=== PATIENT | male | born 1945 | race Caucasian/White ===

== ENCOUNTER → 2017-05-08 | Outpatient (CLI) | payer MEDICARE ==
--- NOTE | 2017-05-08 13:28 | KCIC ---
Indication: Polyps, seasonal allergies. Technique: Axial images and coronal and sagittal reformatted images are provided. Mobridge protocol was utilized. No comparison is available. One or more of the following individualized dose reduction techniques were utilized for this examination: 1. Automated exposure control 2. Adjustment of the mA and/or kV according to patient size 3. Use of iterative reconstruction technique Findings: There is mild bifrontal mucosal thickening with occlusion of both frontal recesses. Moderate to severe opacification of the ethmoid air cells is noted. There is minimal mucosal thickening in the left sphenoid sinus, the right sphenoid sinus is small but clear. There is occlusion of the sphenoethmoidal recess. Maxillary sinus mucosal thickening is mild on the right and moderate on the left with debris present on the left. There is no wall sclerosis. Both maxillary ostia are occluded. There is a Bernie cell present bilaterally. There is nasal septal deviation to the right with contact with the inferior turbinate. Mastoid air cells are clear. Orbital contents are unremarkable. IMPRESSION: Pansinus mucosal thickening. Electronically signed by: Alexi Fong MD (05/08/2017 1:24 PM) [facility]-KCIC1
== END | disposition home or self-care (01) ==
LOC: KCIC CT 12:44
PROVIDERS: ATTEND Otolaryngology
DX: J34.2 Deviated nasal septum (principal)
CPT/HCPCS: 70486

== ENCOUNTER → 2017-07-14 | Outpatient (CLI) | payer MEDICARE ==
--- NOTE | 2017-07-15 08:55 | KCIC ---
MRI right hip without contrast dated 07/14/2017 5:00 PM Indication: Right hip pain pain for months old left leg injury. Comparison: No comparison is available. Technique: Routine multiplanar multisequence imaging performed. . Findings: Homogeneous signal throughout the visualized bone marrow. No bone marrow edema or marrow replacement process. There are mild hypertrophic change of the right hip joint. Mild thinning and surface irregularity of the articular cartilage. No full-thickness cartilage defect. There is outward convex deformity of the lateral femoral head/neck junction with no discrete herniation pit or subchondral cyst. Signal irregularity and deformity of the anterior superior labrum with linear signal along the labral cartilaginous interface. No significant joint effusion or loose body. Gluteus minimus and gluteus medius tendons are intact. There is minimal increased signal within the gluteus medius at its trochanteric attachment. Proximal hamstring tendon complex is intact. Iliopsoas is intact. Limited imaged portions of the pelvis are unremarkable. Mild degenerative change of the left hip joint. Mild edema within the paraspinous soft tissues the level of the lumbosacral junction, nonspecific. No free fluid or lymphadenopathy. IMPRESSION: 1. 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 2. Anterior superior labral tear/detachment on the right. 3. Outward convex deformity of the lateral femoral head/neck junction suggesting underlying femoral acetabular impingement. Electronically signed by: James Britton MD (07/15/2017 8:52 AM) [facility]-KCIC2
== END | disposition home or self-care (01) ==
LOC: KCIC MRI 16:28
PROVIDERS: ATTEND Family Medicine
DX: S43.431A Superior glenoid labrum lesion of right shoulder, initial encounter (principal); M94.251 Chondromalacia, right hip; M16.11 Unilateral primary osteoarthritis, right hip; X58.XXXA Exposure to other specified factors, initial encounter; Y93.89 Activity, other specified; Y92.89 Other specified places as the place of occurrence of the external cause; Y99.8 Other external cause status
CPT/HCPCS: 73721

== ENCOUNTER → 2018-01-14 | Outpatient (CLI) | payer OTHER | END | disposition home or self-care (01) | LOC: KCIC MRI 13:53 | DX: S83.241A Other tear of medial meniscus, current injury, right knee, initial encounter (principal); M71.21 Synovial cyst of popliteal space [Baker], right knee; M75.50 Bursitis of unspecified shoulder; M19.011 Primary osteoarthritis, right shoulder; M94.261 Chondromalacia, right knee; X58.XXXA Exposure to other specified factors, initial encounter; Y93.89 Activity, other specified; Y92.89 Other specified places as the place of occurrence of the external cause; Y99.8 Other external cause status | CPT/HCPCS: 73221; 73721 ==

== ENCOUNTER → 2018-01-19 | Outpatient (CLI) | payer OTHER | END | disposition home or self-care (01) | LOC: KCIC MRI 10:53 | DX: S93.691D Other sprain of right foot, subsequent encounter (principal); M19.071 Primary osteoarthritis, right ankle and foot; R60.0 Localized edema; X58.XXXD Exposure to other specified factors, subsequent encounter | CPT/HCPCS: 73718; 73721 ==

== ENCOUNTER 2018-12-16 09:32 | Outpatient (CLI) | payer MEDICARE, OTHER ==
[2018-12-16] VITALS (7 sets, daily range): BP systolic 97–137; BP diastolic 63–88
[~2018-12-16] VITALS: Ht 167.6 cm; Wt 67.6 kg
[~2018-12-16 09:32] MED LIST: ACET325T9 PO; CETI10TA22 PO; LACT1CAP8 PO; OMEP20CA10 PO; SULF1TAB24 PO
[2018-12-16 09:59] LABS: BASO # 0.1 x10^3/uL (0.0-0.2); BASO % 1 % (0-3); EOS # 0.2 x10^3/uL (0.0-0.7); EOS % 4 % (0-3); HEMATOCRIT 38.9 % (39.0-53.0); HEMOGLOBIN 13.4 g/dL (13.0-17.5); LYMPH # 1.4 x10^3/uL (1.0-4.8); LYMPH % 29 % (24-48); MEAN CORPUSCULAR HEMOGLOBIN 32 pg (25-35); MEAN CORPUSCULAR HGB CONC 34 g/dL (31-37); MEAN CORPUSCULAR VOLUME 94 fL (79-100); MONO # 0.5 x10^3/uL (0.0-1.1); MONO % 9 % (0-9); NEUT # 2.8 x10^3uL (1.8-7.7); NEUT % 56 % (31-73); PLATELET COUNT 268 x10^3/uL (140-400); RED BLOOD COUNT 4.14 x10^6/uL (4.30-5.70); RED CELL DISTRIBUTION WIDTH 12.8 % (11.5-14.5); WHITE BLOOD COUNT 4.9 x10^3/uL (4.0-11.0)
[2018-12-16 10:06] LABS: PROTHROMBIN TIME PATIENT 13.2 SEC (11.7-14.0)
[2018-12-16] MEDS ORDERED: LIDOCAINE WITH 8.4% SOD BICARB 3 ML DISP.SYRIN. ONE ×2 (10:20→10:28)
[2018-12-16] MEDS ORDERED: IOHEXOL 240 MG/ML 50ML VIAL. ONE (10:28)
[2018-12-16] MEDS ORDERED: MIDAZOLAM HCL/PF 5 MG/5 ML VIAL. ONE (10:30)
[2018-12-16] MEDS ORDERED: fentaNYL PF VIAL 100 MCG/2 ML VIAL ONE (10:30)
[2018-12-16] MEDS ORDERED: MIDAZOLAM HCL/PF 5 MG/5 ML VIAL. IV ONE (11:00)
[2018-12-16] MEDS ORDERED: LIDOCAINE WITH 8.4% SOD BICARB 3 ML DISP.SYRIN. IJ ONE (11:00)
[2018-12-16] MEDS ORDERED: fentaNYL PF VIAL 100 MCG/2 ML VIAL IV ONE (11:00)
[2018-12-16] MEDS ORDERED: IOHEXOL 240 MG/ML 50ML VIAL. IJ ONE (11:00)
--- NOTE | 2018-12-16 11:33 | PDOC1 ---
History and Physical Date of Procedure Date of Admission History of Present Illness Reason for Visit Adult male with debilitating acute to sub-acute compression fractures of T10 and L1, abnormal MRI concerning for pathological marrow, hx of bladder cancer Past Medical History Past Medical History see nursing pre-op assessment Current Medications Current Medications Current Medications Lidocaine/Sodium Bicarbonate (Buffered Lidocaine 1%) 3 ml STK-MED ONCE .ROUTE ; Start 12/16/18 at 10:20; Stop 12/16/18 at 10:21; Status DC Lidocaine/Sodium Bicarbonate (Buffered Lidocaine 1%) 3 ml STK-MED ONCE .ROUTE ; Start 12/16/18 at 10:28; Stop 12/16/18 at 10:29; Status DC Iohexol (Omnipaque 240 Mg/ml) 50 ml STK-MED ONCE .ROUTE ; Start 12/16/18 at 10: 28; Stop 12/16/18 at 10:29; Status DC Cefazolin Sodium 50 ml @ As Directed STK-MED ONCE IV ; Start 12/16/18 at 10:30; Stop 12/16/18 at 10:31; Status DC Midazolam HCl (Versed) 5 mg STK-MED ONCE .ROUTE ; Start 12/16/18 at 10:30; Stop 12/16/18 at 10:31; Status DC Fentanyl Citrate (Fentanyl 2ml Vial) 100 mcg STK-MED ONCE .ROUTE ; Start at 10:30; Stop 12/16/18 at 10:31; Status DC Lidocaine/Sodium Bicarbonate (Buffered Lidocaine 1%) 3 ml 1X ONCE IJ ; Start at 11:00; Stop 12/16/18 at 11:01; Status DC Midazolam HCl (Versed) 5 mg 1X ONCE IV ; Start 12/16/18 at 11:00; Stop at 11:01; Status DC Fentanyl Citrate (Fentanyl 2ml Vial) 100 mcg 1X ONCE IV ; Start 12/16/18 at 11: 00; Stop 12/16/18 at 11:01; Status DC Cefazolin Sodium 50 ml @ 100 mls/hr 1X ONCE IV ; Start 12/16/18 at 11:00; Stop 12/16/18 at 11:29; Status DC Iohexol (Omnipaque 240 Mg/ml) 50 ml 1X ONCE IJ ; Start 12/16/18 at 11:00; Stop 12/16/18 at 11:01; Status DC Active Scripts Active Reported Bactrim Ds Tablet (Sulfamethoxazole/Trimethoprim) 1 Each Tablet 1 Tab PO DAILY Zyrtec (Cetirizine Hcl) 10 Mg Tablet 1 Tab PO DAILY Omeprazole 20 Mg Capsule. 1 Cap PO BID Allergies Allergies: Coded Allergies: No Known Drug Allergies (Unverified , 03/28/15) Physical Exam Vital Signs Vital Signs Date Time Temp Pulse Resp B/P (MAP) Pulse Ox O2 Delivery O2 Flow Rate FiO2 12/16/18 10:14 Room Air 12/16/18 10:00 98.0 64 20 137/88 (104) 97 98.0 Other see nursing pre-op assessment Assessment Assessment T10 and l1 compression fractures Plan Plan T10 and L1 biopsy and kyphoplasty DYANA MILLER MD Dec 16, 2018 11:33
--- NOTE | 2018-12-16 11:35 | PDOC ---
BRIEF OPERATIVE NOTE Pre-Op Diagnosis T10 and L1 acute to subacute compression fractures and osteoporosis Post-Op Diagnosis same Procedure Performed T10 and L1 kyphoplasty and Biopsy Surgeon Annette Anesthesia Type: Conscious Sedation Specimens Obtained 1 x 11g core from both T10 and L1 Findings T10 and L1 kyphoplasty Complications No immediate DYANA MILLER MD Dec 16, 2018 11:35
--- NOTE | 2018-12-16 11:35 | PDOC ---
MODERATE SEDATION ASSESSMENT RISKS/ALTERNATIVES Risks/Alternatives Risks and alternatives of this type of sedation and procedure discussed with: RISK/ALTERNATIVES: Patient H & P ON CHART H & P H & P on chart and reviewed for co-morbid conditions and appropriate labs. H&P ON CHART: Yes STATUS PREG STATUS ASSESSED: Yes MEDS/ALLERGIES REVIEWED Meds/Allergies Reviewed Medications and Allergies including time and route of recently administered narcotics and sedatives. MEDS/ALLERGIES REVIEWED: Yes ASA RATING ASA RATING: II AIRWAY ASSESSMENT Airway Assessment Airway patency, oral function limitations, presence of caps, crowns, dentures, partials, and ability to extend neck assessed. AIRWAY ASSESSMENT: Yes MALLAMPATI SCORE MALLAMPATI SCORE: II PRE-SEDATION ASSESSMENT PRE-SEDATION ASSESSMENT: Yes DYANA MILLER MD Dec 16, 2018 11:35
--- NOTE | 2018-12-16 13:23 | NUR ---
Discharge Note: SOPHIA DENNIS Discharge instructions and discharge home medications, follow up, s/s requiring further attention, and wound care reviewed with patient and and a copy given. All questions have been answered and understanding verbalized. The following instructions and handouts were given: post vertebroplasty, post moderation sedation adult Discontinued lines and drains: right wrist peripheral IV. Patient discharged to home with via private vehicle
--- NOTE | 2018-12-16 14:59 | RAD ---
Procedure: Fluoroscopic guided biopsy and kyphoplasty of T10 and L1 Clinical Indication: 73-year-old male with debilitating osteoporotic compression fractures of T10 and L1, with suspicious findings on MRI concerning for marrow infiltration. History of bladder cancer. Sedation: Conscious sedation was administered with a total intraprocedural [id number] time of 50 minutes. The patient was monitored by a qualified independent observer throughout the time of sedation. Please refer to the medical record for exact doses of medications utilized to achieve moderate sedation. Antibiotics: Elements antibiotic Exposure: Kerma-Area Product: 3068 uGycm2 Sterility: All elements of maximal sterile barrier technique including the use of a cap, mask, sterile gown, sterile gloves, large sterile sheet, appropriate hand hygiene, and 2% chlorhexidine for cutaneous antisepsis (or acceptable alternative antiseptic per current guidelines) were followed for this procedure. If ultrasound guidance was utilized, sterile ultrasound techniques were followed including use of a sterile probe cover. Consent: The procedure was explained in its entirety to the patient or the patients designated vaccine customer representative by a member of the treatment team, including a discussion of the risks, benefits and commonly accepted alternatives to the procedure, as well as the expected consequences of no therapy whatsoever. Discussion of the risks included, but was not limited to, those that are most frequent and those that are rare but possibly severe or life-threatening, as well as the possibility of unforeseen complications. Technique and Findings: Following informed consent, the patient was prepped and draped in usual sterile fashion. 1% lidocaine was used to achieve local anesthesia over the area of interest. A small dermatotomy was made. Under fluoroscopic guidance, a 10-gauge kyphoplasty needle was advanced in a left transpedicular fashion to the posterior aspect of L1. An 11-gauge core bone biopsy specimen was then obtained and preserved in formalin. A second area was then anesthetized at the T10 level and a second small dermatotomy was made. Once again under fluoroscopic guidance, a 10-gauge needle was advanced in a left transpedicular fashion towards the posterior aspect of the T10 vertebral body. This needle was felt to be suboptimal in orientation, and consequently was removed. The right paravertebral soft tissues were then anesthetized at the T10 level and a third small dermatotomy was made. Under fluoroscopic guidance, the 10-gauge needle was advanced in a right transpedicular fashion to the posterior aspect of the T10 vertebral body. An 11-gauge bone biopsy needle was then advanced coaxially and used to obtain a bone biopsy specimen of T10. This was preserved in formalin. A balloon was then advanced sequentially at T10 and subsequently at L1, and used to create a cavity within both vertebral bodies. This balloon ruptured within the vertebral body of L1, however the entirety of the balloon was successfully retrieved. Polymethylmethacrylate was then instilled in both vertebral bodies with good result. Both needles were then removed and hemostasis was achieved with manual compression. Complications: No immediate Impression: 1. Fluoroscopic guided biopsy and kyphoplasty of T10 and L1 as described
--- NOTE | 2018-12-21 17:08 | PATHOLOGY ---
[facility] Accession Number: [id number] . 01 Material submitted: . PART A: T10 BIOPSY PART B: L1 BIOPSY . 01 Clinical history: . T10/L1 compression fracture . 02 Diagnosis: A. Bone, T10 vertebral body core biopsy: - Reactive bone formation with marrow edema, focal marrow fibrosis and chronic inflammation, and focal hemosiderin laden macrophages. . B. Bone, L1 vertebral body core biopsy: - Focal reactive bone formation with marrow edema and focal hemosiderin laden macrophages and focal presence of hematopoietic marrow. (JPM:luis; 12/21/2018) QMS/12/21/2018 . 02 Comment: Sections of the T10 vertebral body bone biopsy show reactive bone formation which is lined by osteoblasts and focal osteoclasts. The marrow stroma shows edema, focal fibrosis and chronic inflammation, and focal hemosiderin laden macrophages. The findings are consistent with fracture site. There is no evidence of metastatic carcinoma. . Sections of the L1 vertebral body biopsy show focal reactive bone formation which is lined by osteoblasts. There is marrow edema and focal hemosiderin laden macrophages. There is focal hematopoietic marrow present in the core biopsy. There is no evidence of metastatic carcinoma. The case is also examined by Dr. Reina, who concurs with the diagnoses. (JPM:luis; 12/21/2018) . 02 Electronically signed: . Clive Michelle MD, Pathologist NPI- [id number] . 01 Gross description: . A. The specimen is received in formalin, labeled "Aditya Hollins, T10" and consists of a garcia bone core measuring 1.6 cm in length and 0.2 cm in diameter which is entirely submitted in A1 following decalcification. . B. The specimen is received in formalin, labeled "Aditya Hollins, L1" and consists of a garcia bone core measuring 1.3 cm in length and 0.2 cm in diameter which is entirely submitted in B1 following decalcification. (SDY; 12/16/2018) SYU/SYU . 02 Pathologist provided ICD-10: M48.54XA, M89.8X8 . 02 CPT . 816311, 815264, 289210, 194820 Specimen Comment: A courtesy copy of this report has been sent to Specimen Comment: [phone], . Specimen Comment: Report sent to / DR BERRY Performed at: 01 [facility] [address], [place] [id number] MD Terrance Varela MD Phone: [phone] Performed at: 02 [facility] [address], [place] [id number] MD Clive Michelle MD Phone: [phone]
== END 2018-12-16 13:42 | disposition home or self-care (01) ==
LOC: INTRAD 09:32
PROVIDERS: ATTEND Radiology Diagnostic Radiology
DX: M80.88XA Other osteoporosis with current pathological fracture, vertebra(e), initial encounter for fracture (principal); M54.5 Low back pain; Z85.51 Personal history of malignant neoplasm of bladder; Z79.899 Other long term (current) drug therapy; Z79.01 Long term (current) use of anticoagulants
CPT/HCPCS: 22513; 22515; 36415; 85025; 85610; 99152; 99153; C1713; C1725; C1892; J0690; J2250; J3010; Q9966; 22514; 88307; 88311

== ENCOUNTER → 2019-01-01 | Outpatient (CLI) | payer MEDICARE, OTHER ==
[2018-12-16 13:09] VITALS: BP 115/63
--- NOTE | 2019-01-01 10:52 | KCIC ---
Examination: CT of the abdomen pelvis without contrast HISTORY: History of enlarged left ureter, left flank pain COMPARISON: MRI lumbar spine from 12/07/2018 TECHNIQUE: Axial CT images of the abdomen pelvis were performed without contrast. Coronal and sagittal reformats performed Exposure: One or more of the following individualized dose reduction techniques were utilized for this examination: 1. Automated exposure control 2. Adjustment of the mA and/or kV according to patient size 3. Use of iterative reconstruction technique FINDINGS: Minimal infiltrates identified in the right middle lobe, left upper lobe of the lung. No evidence of free air identified in the abdomen. The evaluation of the solid organs is limited due to lack of IV contrast. Evaluation of bowel is limited due to lack of oral contrast. The visualized liver, spleen, adrenals grossly appears unremarkable. The gallbladder is mildly distended. Few gallstones identified in the proximal gallbladder. The stomach is mildly distended. The visualized pancreas grossly appears unremarkable. The small bowel is nondilated. Feces and gas noted in the colon. Severe left-sided hydronephrosis and moderate left hydroureter identified. The distal portion of the ureter is evaluation is limited. Surgical changes of urostomy identified. Streak artifact from metallic clips in the pelvis limited evaluation of the distal ureters. There is mild fat stranding identified about the left kidney. Mild prominent right extrarenal pelvis. Moderate aortic atherosclerosis. Kyphoplasty changes identified at L1 vertebral body. There is mild to moderate compression change of L5 vertebral body similar to prior exam. IMPRESSION: 1. Severe left-sided hydronephrosis and moderate left hydroureter with minimal fat stranding identified about the left kidney could be secondary to distal left ureteral obstruction or stricture. The evaluation of the distal ureter is limited due to streak artifact from metal clips in the pelvis. Changes of urostomy identified. 2. Cholelithiasis 3. Minimal infiltrates identified in the right middle lobe, left upper lobe of the lung. Electronically signed by: Jeronimo Ladd MD (01/01/2019 10:49 AM) [facility]2
== END | disposition home or self-care (01) ==
LOC: KCIC CT 09:42
PROVIDERS: ATTEND Nurse Practitioner Family
DX: N13.39 Other hydronephrosis (principal); K80.20 Calculus of gallbladder without cholecystitis without obstruction; R91.8 Other nonspecific abnormal finding of lung field; I70.0 Atherosclerosis of aorta; M51.06 Intervertebral disc disorders with myelopathy, lumbar region; K31.89 Other diseases of stomach and duodenum; K82.8 Other specified diseases of gallbladder; Z93.6 Other artificial openings of urinary tract status
CPT/HCPCS: 74176

== ENCOUNTER → 2019-06-16 | Outpatient (CLI) | payer MEDICARE ==
[2018-12-16 13:09] VITALS: BP 115/63
--- NOTE | 2019-06-17 11:39 | KCIC ---
KUB History: Abdominal pain, stents Comparison: CT exam January 01, 2019 Findings: 2 supine AP views of abdomen are submitted. There is now pigtail on the left in the superior pelvic region, also pigtail in the right superior pelvic region with convergence of catheter to the right of the midline more inferiorly in the right pelvic region. There are multiple clips in the pelvis. There is cholelithiasis. There is retained stool greater of the right colon. Impression: 1. There is retained catheter in the pelvis as stated, location better characterized by CT if clinically needed. 2. There is again cholelithiasis. Electronically signed by: Prashant Siegel MD (06/17/2019 11:36 AM) [facility]-KCIC1
== END | disposition home or self-care (01) ==
LOC: KCIC 14:27
PROVIDERS: ATTEND Urology
DX: K80.20 Calculus of gallbladder without cholecystitis without obstruction (principal); K56.41 Fecal impaction
CPT/HCPCS: 74018

== ENCOUNTER → 2020-10-04 | Outpatient (CLI) | payer MEDICARE ==
[2018-12-16 13:09] VITALS: BP 115/63
[~2020-10-04] MED LIST changes: -CETI10TA22 PO; +CETI10TA74 PO; -OMEP20CA10 PO; +OMEP20CA16 PO
[2020-10-04] MEDS: SIMETHICONE/SOD BICARB/CITRIC ACID PACKET. PO ONE (13:00)
[2020-10-04] MEDS: BARIUM SULFATE 340 GM SUSPENSION. PO ONE (13:32)
[2020-10-04] MEDS: BARIUM SULFATE 60% 355 ML SUSP PO ONE (13:34)
--- NOTE | 2020-10-04 16:12 | RAD ---
EXAM: SINGLE CONTRAST UPPER GI SERIES. HISTORY: GERD. COMPARISON: Abdomen and pelvis CT of 01/01/2019.. 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 Barium contrast material was administered orally and follo wed in its course through the esophagus, gastroesophageal junction, stomach, pylorus and proximal sma ll bowel with fluoroscopy. Fluoroscopy time 2.2 minutes. 11 images were obtained. The esophagus appears normal in morphology and mucosal pattern. Motility appeared normal. The gastroesophageal junction within its expected position. It opened promptly. A small amount of ref lux was observed. Gastric morphology and mucosal pattern appears normal. The pylorus opened promptly. The duodenal bulb and proximal small bowel are unremarkable. IMPRESSION: 1. Small amount of gastroesophageal reflux with no significant hiatal hernia noted. Electronically signed by: Roshni Rowe MD (10/04/2020 4:09 PM) [id number]
== END ==
LOC: RAD 12:18
PROVIDERS: ATTEND Surgery
DX: K21.9 Gastro-esophageal reflux disease without esophagitis (principal)
CPT/HCPCS: 74240

== ENCOUNTER → 2020-10-13 | Outpatient (CLI) | payer MEDICARE ==
[2018-12-16 13:09] VITALS: BP 115/63
[~2020-10-13] MED LIST changes: +CALC-584 PO; +CETI10TA16 PO; +CHOL2400 MC; +FERR-36 PO; +HYDR15SO6 PO; +MULT-735 PO; +OMEP40CA7 PO; +PLANT ENZYMES; +SULF-16 PO
== END ==
LOC: LAB 10:26
PROVIDERS: ATTEND Surgery
DX: Z01.812 Encounter for preprocedural laboratory examination (principal); Z20.828 Contact with and (suspected) exposure to other viral communicable diseases
CPT/HCPCS: U0003

== ENCOUNTER 2020-10-18 07:24 | Inpatient (IN) | payer MEDICARE ==
[~2020-10-18] VITALS: Ht 177.8 cm; Wt 66.4 kg
[2020-10-18] VITALS (11 sets, daily range): BP systolic 114–155; BP diastolic 71–92
[~2020-10-18 07:24] MED LIST changes: +BUPIVACAINE-EPI 0.5%-1:200000 MPF 30 ML VIAL. INJ ONE; -HYDR15SO6 PO; +HYDROmorphone 2 MG/ML VIAL IV PRN; +ONDANSETRON PF 4 MG/2 ML VIAL. IV PRN; +PROCHLORPERAZINE 10 MG/2 ML VIAL. IV PRN; +fentaNYL PF VIAL 100 MCG/2 ML VIAL IV PRN
[2020-10-18] MEDS ORDERED: SURGICEL HEMOSTAT 4X8 EACH. ONE ×2 (07:26)
[2020-10-18] MEDS ORDERED: LIDOCAINE 2% PF 5 ML VIAL. ONE (07:59)
[2020-10-18] MEDS ORDERED: PROPOFOL 10 MG/ML (20ML) VIAL. IV ONE (07:59)
[2020-10-18] MEDS ORDERED: SUCCINYLCHOLINE 200 MG/10 ML VIAL. ONE (08:00)
[2020-10-18] MEDS ORDERED: ROCURONIUM 50 MG/5 ML VIAL. ONE (08:00)
[2020-10-18] MEDS ORDERED: fentaNYL PF VIAL 100 MCG/2 ML VIAL ONE ×3 (08:00→12:11)
[2020-10-18] MEDS: IV RINGERS,LACTATED 1000ML 1,000 ML IV SCH ×2 (08:15→11:45)
[2020-10-18] MEDS ORDERED: DEXAMETHASONE SOD PHOS 20 MG/5 ML VIAL. ONE (08:42)
[2020-10-18] MEDS ORDERED: DESFLURANE 61 TO 120 MINUTES IH ONE (09:07)
[2020-10-18] MEDS ORDERED: PHENYLEPHRINE in 0.9% NACL PF 1 MG/10 ML SYRINGE. IV ONE (09:07)
[2020-10-18] MEDS ORDERED: NEOSTIGMINE METHYLSULFATE 5 MG/5 ML SYRINGE. ONE (09:12)
[2020-10-18] MEDS ORDERED: GLYCOPYRROLATE 1 MG/5 ML VIAL. ONE (09:12)
[2020-10-18] MEDS ORDERED: ONDANSETRON PF 4 MG/2 ML VIAL. ONE (09:13)
[2020-10-18] MEDS ORDERED: LABETALOL 20 MG/4 ML DISP.SYRIN. IVP ONE (10:18)
[2020-10-18] MEDS ORDERED: PROCHLORPERAZINE 10 MG/2 ML VIAL. IV PRN (11:30)
[2020-10-18] MEDS ORDERED: ONDANSETRON PF 4 MG/2 ML VIAL. IVP PRN (11:30)
[2020-10-18] MEDS ORDERED: NALOXONE 0.4 MG/ML VIAL. IV PRN (11:30)
[2020-10-18] MEDS ORDERED: 0.9 % SODIUM CHLORIDE 10 ML DISP.SYRIN. IV PRN (11:30)
[2020-10-18] MEDS: IV NORMAL SALINE 1000ML BAG 1,000 ML IV SCH (11:30)
[2020-10-18] MEDS ORDERED: HYDROmorphone 2 MG/ML VIAL IV PRN (11:30)
--- NOTE | 2020-10-18 11:33 | PDOC4 ---
Operative Note Operative Note Operative Note: Preoperative Diagnosis: Gastroesophageal reflux disease Postoperative Diagnosis: Same Procedure: Laparoscopic Zaida fundoplication Surgeon: José Antonio Harp.: Dr. Wong Anesthesia: Gen. Estimated Blood Loss: 20 mL Specimen: None Drains: None Complications: None Indications: The patient is a 75-year-old male who was referred by his GI physician for antireflux surgery. The details of a laparoscopic Zaida fundopl ication were presented. The risks of surgery were discussed which include bleeding, infection, recurrent herniation, gastric or esophageal perforation, visceral injury, recurrent reflux, gas bloat syndrome, dysphasia, potential need for additional surgeries or procedures. She understands and would like to proceed. Description: The patient was taken to the operating room and placed supine on the operating table. General anesthesia was performed. The patient was then placed in lithotomy. The abdomen was prepped with ChloraPrep and draped in a standard surgical fashion. A small incision was made superior to and to the patient's left of the umbilicus through which a visualized 5 mm trocar was inserted. A pneumoperitoneum was then created and the laparoscope was introduced. In the right lateral abdomen a 12 mm trocar was inserted through which a soft fan retractor was used to elevate the left lobe of the liver. In the right upper quadrant a 5 mm trocar was inserted. In the left upper quadrant an 11 mm trocar was inserted while in the left lateral abdomen a 5 mm trocar was inserted. The pars flaccida was opened in an avascular location with a harmonic scalpel. There was a large apparent hepatic artery present and this was left intact. The right sobeida was then identified and mobilized away from the esophagus. The dissection continued anteriorly freeing up attachments to the esophagus. The dissection continued to the left sobeida as well. The gastrocolic omentum was then opened with the Harmonic scalpel in the upper portion of the greater curvature. We then freed up the upper part of the greater curvature and fundus using the harmonic scalpel. Large blood vessels were doubly clipped and divided. The dissection continued all the way back up to the left sobeida and any remaining splenic attachments were also mobilized. At this point the esophagus was readily visualized and we were able to free up the area around his gastroesophageal junction. A Severiano drain was then placed around the esophagus at the GE junction and clips were applied holding the [place] in place. With retraction on the Severiano we were able to continue freeing up any remaining attachments particularly in the posterior location. At this point the GE junction was well within the abdominal cavity. The left and right sobeida were then reapproximated with interrupted 2-0 silk sutures using the Endo Stitch device. Stitches were applied both anteriorly and posteriorly allowing for closure of the hernia defect. The fundus was then wrapped around in a 360 fashion creating the fundoplication. A shoeshine maneuver was used to ensure no twists or kinks. An initial 2-0 Ethibond suture was used securing the fundic lips together. Another suture was placed superior to this which incorporated a small bite of the anterior esophagus. An additional suture was then placed inferiorly completing the fundoplication. The wrap was then anchored to the right sobeida using a 2-0 silk stitch. Hemostasis was good. The 11 and 12 mm trochars were then removed and the fascia closed with 0 Vicryl sutures. The remaining ports were removed and the pneumoperitoneum was relieved. Skin at all incisions was closed with 4-0 Monocryl. Steri-Strips and dressings were applied. The patient tolerated the procedure well. ADRI MCCLURE MD Oct 18, 2020 11:33
[2020-10-18] MEDS: MORPHINE SULFATE 2 MG/ML VIAL. IV PRN ×2 (11:46→12:09)
[2020-10-18] MEDS ORDERED: MORPHINE SULFATE 2 MG/ML VIAL. ONE (11:46)
[2020-10-18] MEDS ORDERED: PROCHLORPERAZINE 10 MG/2 ML VIAL. ONE (12:10)
[2020-10-18] MEDS: fentaNYL PF VIAL 100 MCG/2 ML VIAL IV PRN ×2 (12:16→12:37)
[2020-10-18] MEDS: CALCIUM CARB/VIT D3 500/200 TABLET. PO SCH ×2 (16:03→16:18)
[2020-10-18] MEDS: IV DEXTROSE 5 %-0.45 % NACL 1,000 ML IV SCH ×2 (16:03→20:42)
[2020-10-19] MEDS: IV DEXTROSE 5 %-0.45 % NACL 1,000 ML IV SCH ×2 (01:44→12:50)
[2020-10-19 03:00] VITALS: BP 135/69
[2020-10-19 07:18] VITALS: BP 139/72
[2020-10-19] MEDS: CALCIUM CARB/VIT D3 500/200 TABLET. PO SCH ×3 (08:00→11:12)
[2020-10-19] MEDS: PRENATAL MULTIVITAMIN TABLET. PO SCH (09:00)
[2020-10-19] MEDS: FERROUS SULFATE 325 MG TABLET. PO SCH (09:00)
[2020-10-19] MEDS ORDERED: HYDROcodon/APAP 7.5/325MG ORAL 15 ML SOLUTION PO PRN (09:00)
[2020-10-19] MEDS: CHOLECALCIFEROL (VITAMIN D3) 5,000 UNIT CAPSULE PO SCH (09:00)
--- NOTE | 2020-10-19 09:02 | PDOC ---
MATEO FISCHER APRN 10/19/20 0902: SURGICAL PROGRESS NOTE DATE: 10/19/20 TIME: 09:01 Subjective some incisional pain some phlegm, sinus drainage Vital Signs Vital Signs Date Time Temp Pulse Resp B/P (MAP) Pulse Ox O2 Delivery O2 Flow Rate FiO2 10/19/20 08:00 Nasal Cannula 2.0 10/19/20 07:18 98.4 64 18 139/72 (94) 99 98.4 I&O Intake and Output 10/19/20 07:00 Intake Total 3910 ml Output Total 2520 ml Balance 1390 ml Intake Oral 360 ml IV Total 3550 ml Output Urine Total 2500 ml Estimated Blood Loss 20 ml General: Alert, Oriented X3, Cooperative Abdomen: Soft, Other (lap dressings dry) Assessment/Plan s/p debra fundoplication clears, oral pain meds ambulate Justicifation of Admission Dx: Justifications for Admission: Justification of Admission Dx: Yes Comments: GERD, HH ADRI MCCLURE MD 10/19/20 1251: SURGICAL PROGRESS NOTE Assessment/Plan Agree with above MATEO FISCHER APRN Oct 19, 2020 09:02 ADRI MCCLURE MD Oct 19, 2020 12:51
[2020-10-19] MEDS: SMZ/TMP 800/160MG TABLET. PO SCH (09:14)
[2020-10-19] MEDS: CETIRIZINE HCL 10 MG TABLET. PO SCH (09:15)
--- NOTE | 2020-10-19 10:30 | NUR ---
SW following. Discussed with RN, pt from home, 2L, clear liquid diet. PT/OT ordered. Pt had surgery yesterday (10/18/20). SW to determine if pt uses oxygen at home. Possible discharge today if pt tolerates diet. SW will continue to follow.
[2020-10-19 10:47] VITALS: BP 109/69
[2020-10-19] MEDS: IV NORMAL SALINE 1000ML BAG 1,000 ML IV SCH (11:12)
[2020-10-19 14:43] VITALS: BP 152/78
[2020-10-19 19:25] VITALS: BP 158/84
[2020-10-19 23:41] VITALS: BP 153/76
[2020-10-20] MEDS: IV DEXTROSE 5 %-0.45 % NACL 1,000 ML IV SCH (00:40)
[2020-10-20 03:21] VITALS: BP 147/71
[2020-10-20 07:12] VITALS: BP 143/71
[2020-10-20] MEDS: CALCIUM CARB/VIT D3 500/200 TABLET. PO SCH ×2 (07:37→07:47)
[2020-10-20] MEDS: FERROUS SULFATE 325 MG TABLET. PO SCH (07:37)
[2020-10-20] MEDS: CHOLECALCIFEROL (VITAMIN D3) 5,000 UNIT CAPSULE PO SCH (07:38)
[2020-10-20] MEDS: IV NORMAL SALINE 1000ML BAG 1,000 ML IV SCH (07:38)
[2020-10-20] MEDS: PRENATAL MULTIVITAMIN TABLET. PO SCH (07:38)
[2020-10-20] MEDS: CETIRIZINE HCL 10 MG TABLET. PO SCH (07:46)
[2020-10-20] MEDS: SMZ/TMP 800/160MG TABLET. PO SCH (07:47)
[2020-10-20] MEDS ORDERED: HYDR15SO6 PO (09:17)
--- NOTE | 2020-10-20 09:20 | DISCH ---
DISCHARGE INSTRUCTIONS Condition on Discharge Condition on Discharge: Stable Activity After Discharge Activity Instructions for Disc: Activity as tolerated Lifting Instructions after Dis: No heavy lifting, No pulling or pushing, Do not lift >10 pounds Driving Instructions after Dis: Do not drive today Weight Bearing Status after Di: No restrictions Diet after Discharge Diet after Discharge: Full Liquid (x 2weeks, no carbonated drinks ) Wound Incision Care Wound/Incision Care: May get incision wet, No wound care needed Contacting the DRShalom after DC Call your doctor for: Concerns you may have Follow-Up Follow up with: Dr Chou 2 weeks, call to schedule [phone] MATEO FISCHER APRN Oct 20, 2020 09:20
--- NOTE | 2020-10-20 09:23 | PDOC3 ---
Discharge Summary Visit Information Date of Admission: Oct 18, 2020 Date of Discharge: Oct 20, 2020 Admitting Diagnosis: GERD Final Diagnosis GERD Brief Hospital Course Allergies Allergies Coded Allergies Type Severity Reaction Last Updated Verified No Known Drug Allergies 10/18/20 No Vital Signs Vital Signs Date Time Temp Pulse Resp B/P (MAP) Pulse Ox O2 Delivery O2 Flow Rate FiO2 10/20/20 07:20 Room Air 10/20/20 07:12 98.0 65 18 143/71 (95) 93 98.0 10/19/20 10:47 2.0 Brief Hospital Course Mr. Hollins is a 75 old male who underwent Laparoscopic Zaida fundoplication. postoperatively tolerating diet, pain managed. Ready for discharge home. Assessment Assessment a/o, abd soft, lap sites c/d/i Discharge Information Condition at Discharge: Stable Follow Up: Weeks (2) Scheduled Calcium Carbonate/Vitamin D3 (Calcium 500-Vit D3 600 Tablet) 1 Each Tablet, 1 TAB PO BID for supplement for 30 Days, #60 Ref 0 (Reported) Entered as Reported by: OLI GAONA on 10/17/20 1041 Last Taken: 1200Calcium 1600 D3 on 10/17/20 Last Action: Converted on 10/18/20 1125 by ADRI MCCLURE Cetirizine Hcl (Zyrtec) 10 Mg Tablet, 1 TAB PO DAILY for SEASONAL ALLERGIES, #30 Ref 2 (Reported) Entered as Reported by: JAYY RHODES on 12/14/18 1137 Last Taken: Unknown Dose on 10/17/20 Last Action: Continued on 10/18/20 1125 by ADRI MCCLURE Cholecalciferol (Vitamin D3) (Vitamin D3) 2,400 Unit/1 Ml Liquid, 5,000 UNIT MC DAILY for supplement, (Reported) Entered as Reported by: OLI GAONA on 10/17/20 1039 Last Taken: Unknown Dose on 10/17/20 Last Action: Converted on 10/18/20 1125 by ADRI MCCLURE Ferrous Sulfate (Iron) 325 Mg Tablet, 1 TAB PO DAILY for anemia for 30 Days, #30 Ref 0 (Reported) Entered as Reported by: OLI GAONA on 10/17/20 1039 Last Taken: Unknown Dose on 10/18/20 Last Action: Continued on 10/18/20 1125 by ADRI MCCLURE Multivitamin (One-Daily Multi-Vitamin) 1 Each Tablet, 1 TAB PO DAILY for supplement for 30 Days, #30 Ref 0 (Reported) Entered as Reported by: OLI GAONA on 10/17/20 1040 Last Taken: Unknown Dose on 10/17/20 Last Action: Converted on 10/18/20 1125 by ADRI MCCLURE Sulfamethoxazole/Trimethoprim (Sulfamethoxazole-Tmp Ss Tablet) 1 Each Tablet, 0.5 TAB PO DAILY for ileal conduit/prophylaxis, (Reported) Entered as Reported by: OLI GAONA on 10/17/20 1038 Last Taken: Unknown Dose on 10/18/20 0600 Last Action: Converted on 10/18/20 112 by ADRI MCCLURE Scheduled PRN Hydrocodone Bit/Acetaminophen (Hydrocodone-Apap 7.5-325/15 Soln ) 15 Ml Solution, 15 ML PO PRN Q6HRS PRN for MODERATE TO SEVERE PAIN, #200 Ref 0 Prescribed by: Mateo Mckee on 10/20/20 0917 Miscellaneous Medications [plant enzymes] , (Reported) Entered as Reported by: OLI GAONA on 10/17/20 1041 Last Taken: Unknown Dose on 10/17/20 Last Action: HELD on 10/18/20 1125 by ADRI MCCLURE Discontinued Medications Cetirizine Hcl (Cetirizine Hcl) 10 Mg Tablet, 1 TAB PO DAILY for allergies, #30 Ref 5 (Reported) Entered as Reported by: OLI GAONA on 10/17/20 1038 Last Action: Discontinued on 10/17/20 1043 by OLI GAONA Omeprazole (Omeprazole) 20 Mg Capsule.dr, 1 CAP PO BID for GERD, #30 Ref 5 (Reported) Entered as Reported by: JAYY RHODES on 12/14/18 1137 Last Action: Discontinued on 10/17/20 1043 by OLI GAONA Omeprazole (Omeprazole) 40 Mg Capsule.dr, 40 MG PO BID for GERD, (Reported) Entered as Reported by: OLI GAONA on 10/17/20 1038 Last Taken: Unknown Dose on 10/18/20 0600 Last Action: HELD on 10/18/20 1125 by ADRI MCCLURE Sulfamethoxazole/Trimethoprim (Bactrim Ds Tablet) 1 Each Tablet, 1 TAB PO DAILY for Ileostomy, #14 (Reported) Entered as Reported by: JAYY RHODES on 12/14/18 1137 Last Action: Discontinued on 10/17/20 1043 by OLI GAONA Justicifation of Admission Dx: Justifications for Admission: Justification of Admission Dx: Yes MATEO MCKEE APRN Oct 20, 2020 09:23
--- NOTE | 2020-10-20 09:44 | NUR ---
SW following. Discussed with RN, pt from home with , room air, clear liquid diet. PT/OT recommending home. Discharge order for home with self care. Pt's coming to collect him. RN advised no SW needs.
--- NOTE | 2020-10-20 10:30 | NUR ---
Discharge Note: JET DENNIS Discharge instructions and discharge home medications reviewed with Patient and a copy given. All questions have been answered and understanding verbalized. The following instructions and handouts were given: information about plan of care, medications, follow up appointments, incisional care, diet, etc. Discontinued lines and drains: IV line in left wrist removed, catheter tip intact. Patient discharged to home with self care with , patient ambulated to discharge vehicle.
== END 2020-10-20 10:30 | disposition home or self-care (01) | DRG 328 ==
LOC: SURG 07:24 → 4 NORTH 11:20
PROVIDERS: ADMIT Surgery; ATTEND Surgery
PROC: 0DV44ZZ Restriction of Esophagogastric Junction, Percutaneous Endoscopic Approach (ICD-10-PCS; principal; 2020-10-18 09:00)
DX: K21.9 Gastro-esophageal reflux disease without esophagitis (principal); Z79.899 Other long term (current) drug therapy; K22.70 Barrett's esophagus without dysplasia; Z85.51 Personal history of malignant neoplasm of bladder
CPT/HCPCS: J0330; J0690; J0780; J1100; J1170; J2270; J2370; J2405; J2704; J2710; J3010; J3490; J7042; J7120; G0378